=== PATIENT | male | born 1960 | race American Indian/Alaskan Native ===

== ENCOUNTER 2020-02-26 14:05 | Emergency (ER) | payer OTHER, MEDICARE ==
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
[2020-02-26 14:53] VITALS: BP 137/91
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
[2020-02-26 16:46] LABS: Hematocrit 52.4 % (35.5-45.6); Hemoglobin 17.1 gm/dl (11.8-15.2); Mean Corpuscular HGB Conc 33 % (32-34); Mean Corpuscular Volume 92 fl (84-94); Platelet Count 253 K/mm3 (140-440); Red Blood Count 5.71 M/mm3 (3.65-5.03); Red Cell Distribution Width 16.3 % (13.2-15.2)
[2020-02-26 17:08] LABS: Alanine Aminotransferase 19 units/L (7-56); BUN/Creatinine Ratio 9; Blood Urea Nitrogen 11 mg/dL (9-20); Calcium 9.7 mg/dL (8.4-10.2); Hemolysis Index 100
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
[2020-02-26] MEDS ORDERED: KETOROLAC 30 MG/1 ML INJ IM ONE (17:10)
[2020-02-26 17:25] LABS: Basophils % (Auto) 0.6 % (0.0-1.8); Eosinophils # (Auto) 0.1 K/mm3 (0.0-0.4); Eosinophils % (Auto) 1.2 % (0.0-4.3); Lymphocytes # (Auto) 1.8 K/mm3 (1.2-5.4); Monocytes # (Auto) 0.6 K/mm3 (0.0-0.8)
== END 2020-02-26 18:12 | disposition home or self-care (01) ==
LOC: ED 14:05
DX: S09.90XA Unspecified injury of head, initial encounter (principal); R07.89 Other chest pain; R10.11 Right upper quadrant pain; I10 Essential (primary) hypertension; K21.9 Gastro-esophageal reflux disease without esophagitis; M19.91 Primary osteoarthritis, unspecified site; F32.9 Major depressive disorder, single episode, unspecified; F17.200 Nicotine dependence, unspecified, uncomplicated; Z79.1 Long term (current) use of non-steroidal anti-inflammatories (NSAID); Z79.899 Other long term (current) drug therapy; V49.49XA Driver injured in collision with other motor vehicles in traffic accident, initial encounter; Y93.89 Activity, other specified; Y92.410 Unspecified street and highway as the place of occurrence of the external cause; Y99.8 Other external cause status
CPT/HCPCS: 36415; 70450; 71046; 72125; 74019; 80053; 83690; 84484; 85025; 93005; 96372; 99284; J1885